=== PATIENT | female | born 1955 | race Caucasian/White ===

== ENCOUNTER 2023-09-03 08:58 | Outpatient (CLI) | payer OTHER ==
[2023-09-03 11:02] LABS: Anion Gap 12 mmol/L (10-20); BUN (Urea Nitrogen) 24 mg/dL (9.8-20.1); Calc. Creatinine Clearance 0 mL/min (70-130); Calcium 8.2 mg/dL (7.8-10.44); Carbon Dioxide 33 mmol/L (23-31); Chloride 103 mmol/L (98-107); Estimated GFR 95; Glucose 74 mg/dL (80-115); Potassium 3.5 mmol/L (3.5-5.1); Sodium 144 mmol/L (136-145)
== END 2023-09-03 08:59 | disposition home or self-care (01) ==
LOC: CSHLAB 08:58
PROVIDERS: ATTEND Surgery
DX: Z01.818 Encounter for other preprocedural examination (principal); C71.9 Malignant neoplasm of brain, unspecified
CPT/HCPCS: 80048; 93005; 93010

== ENCOUNTER 2023-11-16 13:24 | Outpatient (CLI) | payer OTHER | END 2023-11-16 13:25 | disposition home or self-care (01) | LOC: CSHMRI 13:24 | PROVIDERS: ATTEND Student in an Organized Health Care Education/Training Program | DX: C71.9 Malignant neoplasm of brain, unspecified (principal); S22.000A Wedge compression fracture of unspecified thoracic vertebra, initial encounter for closed fracture; S32.000S Wedge compression fracture of unspecified lumbar vertebra, sequela; S22.060A Wedge compression fracture of T7-T8 vertebra, initial encounter for closed fracture; S32.020A Wedge compression fracture of second lumbar vertebra, initial encounter for closed fracture; M48.061 Spinal stenosis, lumbar region without neurogenic claudication; M47.26 Other spondylosis with radiculopathy, lumbar region; M47.27 Other spondylosis with radiculopathy, lumbosacral region; M48.07 Spinal stenosis, lumbosacral region | CPT/HCPCS: 72157; 72158 ==

== ENCOUNTER 2023-12-12 13:52 | Outpatient (CLI) | payer OTHER | END 2023-12-12 13:53 | disposition home or self-care (01) | LOC: CSHMAMMO 13:52 | PROVIDERS: ATTEND Internal Medicine Hematology & Oncology | DX: M80.08XA Age-related osteoporosis with current pathological fracture, vertebra(e), initial encounter for fracture (principal); M85.851 Other specified disorders of bone density and structure, right thigh | CPT/HCPCS: 77080 ==

== ENCOUNTER 2024-01-16 15:08 | Outpatient (CLI) | payer OTHER | END 2024-01-16 15:09 | disposition home or self-care (01) | LOC: CSHRAD 15:08 | PROVIDERS: ATTEND Family Medicine | DX: M48.56XD Collapsed vertebra, not elsewhere classified, lumbar region, subsequent encounter for fracture with routine healing (principal); M48.54XD Collapsed vertebra, not elsewhere classified, thoracic region, subsequent encounter for fracture with routine healing | CPT/HCPCS: 72100 ==